=== PATIENT | female | born 1945 | race Caucasian/White ===

== ENCOUNTER 2016-09-16 13:15 | Emergency (ER) | payer MEDICARE, BC ==
--- NOTE | 2016-09-16 16:24 | EDM.PDOC ---
ED HISTORY OF PRESENT ILLNESS - General Chief Complaint: Respiratory Problem Stated Complaint: ACUTE SHORTNESS OF BREATH Time Seen by Provider: 09/16/16 14:48 Source: Reports: Patient History Limitations: Reports: No limitations - History of Present Illness INITIAL COMMENTS - FREE TEXT/NARRATIVE: This patient comes in complaining of shortness of breath and fluid retention. She said her problems started off a couple of weeks ago with a viral syndrome with a cough. She went to the doctor was put on antibiotics any cough medication and hope that she would be better by the time she had her hip replaced on September 13. The surgery did take place on the and the following day she noted a lot of itching and she started retaining fluid. She was put on some Lasix. She has gained 12 pounds since Monday or 3 days ago. She complains of shortness of breath and dyspnea on exertion. She took Lasix yesterday and today it doesn't seem to have helped much. She denies any history of heart disease. She has fibromyalgia and anxiety. She denies any heart disease kidney or liver disease. She complains of swelling in her legs especially the left thigh. There's no chest pain or chest pain with respirations. - Related Data Allergies/ADRs: Allergies Allergy/AdvReac Type Severity Reaction Status Date / Time No Known Allergies Allergy Verified 05/18/16 12:13 Home Meds: Home Meds ALPRAZolam [Alprazolam] 0.5 tab PO TID PRN 05/18/16 [History] DULoxetine HCl [Cymbalta] 60 mg PO DAILY 05/18/16 [History] Acetaminophen [Tylenol] 650 mg PO Q6HR 09/16/16 [History] Albuterol [Ventolin HFA] 2 puff INH ASDIRECTED 09/16/16 [History] Doxycycline [Doxycycline Hyclate] 100 mg PO BID 09/16/16 [History] Furosemide [Furosemide] 20 mg PO DAILY 09/16/16 [History] Naproxen [Take Home: Naproxen 500 MG, 4 Tab Pack] 250 mg PO BID 09/16/16 [ History] diphenhydrAMINE [Benadryl] 25 mg PO BEDTIME PRN 09/16/16 [History] oxyCODONE HCl [Oxycodone HCl] 1 - 2 tab PO Q4HR 09/16/16 [History] traMADol [Take Home: traMADol 50 MG, 4 Tab Pack] 1 - 2 cap PO Q6HR 09/16/16 [ History] 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 right and left knees. bilatral great toe and thumbs Social & Family History - Tobacco Use Smoking Status *Q: Former Smoker Used Tobacco, but Quit: Yes Month Tobacco Last Used: 30 years ago Tobacco Use Comment: quit 30 years ago - Caffeine Use Caffeine Use: Reports: Coffee - Recreational Drug Use Recreational Drug Use: No ED ROS GENERAL - Review of Systems Review Of Systems: See Below Constitutional: Reports: weight gain HEENT: Reports: No symptoms Respiratory: Reports: Shortness of Breath Cardiovascular: Reports: Dyspnea on exertion GI/Abdominal: Reports: No symptoms : Reports: no symptoms (The the) Musculoskeletal: Reports: other Skin: Reports: no symptoms (Leg swelling per HPI) Neurological: Reports: No Symptoms Psychiatric: Reports: No symptoms Hematologic/Lymphatic: Reports: no symptoms ED EXAM, GENERAL - Physical Exam Exam: See Below Exam Limited By: No limitations General Appearance: alert, WD/WN, no apparent distress, obese Eye Exam: bilateral eye: normal inspection Ears: normal external exam, normal TMs Nose: normal inspection Throat/Mouth: Normal inspection, Normal oropharynx Head: atraumatic Neck: normal inspection, other (Jugular veins not obviously distended) Respiratory/Chest: no respiratory distress, other (Initially some rales in the right base but these quickly cleared up.) Cardiovascular: normal peripheral pulses, regular rate, rhythm, no murmur GI/Abdominal: soft, non tender Back Exam: normal inspection Extremities: other (There is very slight swelling of the left thigh however there is no discoloration and absolutely no tenderness. She's wearing knee high compression stockings. No edema was seen in the lower extremities and there is no tenderness to the calves. No discoloration. There is some bandage on the left hip) Neurological: alert, oriented, CN II-XII intact, normal cognition, no motor/ sensory deficits Psychiatric: normal affect Skin Exam: Warm, Dry Course - Vital Signs Last Recorded V/S: Last Vital Signs Temp 36.3 C 09/16/16 14:47 Pulse 73 09/16/16 15:58 Resp 11 L 09/16/16 15:58 BP 110/46 L 09/16/16 15:58 Pulse Ox 93 L 09/16/16 15:58 - Orders/Labs/Meds Orders: Active Orders 24 hr Category Date Time Status EKG Documentation Completion [RC] ASDIRECTED Care 09/16/16 15:05 Active Chest 2V [CR] Urgent Exams 09/16/16 15:05 Taken EKG 12 Lead [EK] Urgent Ther 09/16/16 15:05 Ordered Labs: Laboratory Tests 09/16/16 09/16/16 09/16/16 Range/Units 14:12 15:16 15:16 WBC 7.8 (4.5-11.0) K/uL RBC 3.67 (3.30-5.50) M/uL Hgb 10.5 L (12.0-15.0) g/dL Hct 31.9 L (36.0-48.0) % MCV 87 (80-98) fL MCH 29 (27-31) pg MCHC 33 (32-36) % Plt Count 336 (150-400) K/uL Neut % (Auto) 72 H (36-66) % Lymph % (Auto) 14 L (24-44) % [place] % (Auto) 9 H (2-6) % Eos % (Auto) 4 (2-4) % Baso % (Auto) 1 (0-1) % Sodium 137 L (140-148) mmol/L Potassium 3.7 (3.6-5.2) mmol/L Chloride 100 (100-108) mmol/L Carbon Dioxide 30 (21-32) mmol/L Anion Gap 10.7 (5.0-14.0) mmol/L BUN 15 (7-18) mg/dL Creatinine 0.8 (0.6-1.0) mg/dL Est Cr Clr Drug Dosing 57.31 mL/min Estimated GFR (MDRD) > 60 (>60) Glucose 86 (74-106) mg/dL Calcium 8.7 (8.5-10.1) mg/dL Total Bilirubin 0.5 (0.2-1.0) mg/dL AST 42 H (15-37) U/L ALT 28 (12-78) U/L Alkaline Phosphatase 60 (46-116) U/L Troponin I (0.000-0.056) ng/mL [id number] Pept (5-125) pg/mL Total Protein 6.2 L (6.4-8.2) g/dL Albumin 2.8 L (3.4-5.0) g/dL Globulin 3.4 (2.3-3.5) g/dL Albumin/Globulin Ratio 0.8 L (1.2-2.2) Urine Color Yellow Urine Appearance Clear Urine pH 6.0 (4.5-8.0) Ur Specific [place] 1.015 (1.008-1.030) Urine Protein Negative (NEGATIVE) mg/dL Urine Glucose (UA) Normal (NEGATIVE) mg/dL Urine Ketones Negative (NEGATIVE) mg/dL Urine Occult Blood Negative (NEGATIVE) Urine Nitrite Negative (NEGATIVE) Urine Bilirubin Negative (NEGATIVE) Urine Urobilinogen Normal (NORMAL) mg/dL Ur Leukocyte Esterase Negative (NEGATIVE) Urine RBC 0-5 (0-5) Urine WBC Not seen (0-5) Ur Epithelial Cells Rare Amorphous Sediment Not seen Urine Bacteria Rare Urine Mucus Not seen 09/16/16 Range/Units 15:16 WBC (4.5-11.0) K/uL RBC (3.30-5.50) M/uL Hgb (12.0-15.0) g/dL Hct (36.0-48.0) % MCV (80-98) fL MCH (27-31) pg MCHC (32-36) % Plt Count (150-400) K/uL Neut % (Auto) (36-66) % Lymph % (Auto) (24-44) % [place] % (Auto) (2-6) % Eos % (Auto) (2-4) % Baso % (Auto) (0-1) % Sodium (140-148) mmol/L Potassium (3.6-5.2) mmol/L Chloride (100-108) mmol/L Carbon Dioxide (21-32) mmol/L Anion Gap (5.0-14.0) mmol/L BUN (7-18) mg/dL Creatinine (0.6-1.0) mg/dL Est Cr Clr Drug Dosing mL/min Estimated GFR (MDRD) (>60) Glucose (74-106) mg/dL Calcium (8.5-10.1) mg/dL Total Bilirubin (0.2-1.0) mg/dL AST (15-37) U/L ALT (12-78) U/L Alkaline Phosphatase (46-116) U/L Troponin I < 0.017 (0.000-0.056) ng/mL [id number] Pept 436 H (5-125) pg/mL Total Protein (6.4-8.2) g/dL Albumin (3.4-5.0) g/dL Globulin (2.3-3.5) g/dL Albumin/Globulin Ratio (1.2-2.2) Urine Color Urine Appearance Urine pH (4.5-8.0) Ur Specific [place] (1.008-1.030) Urine Protein (NEGATIVE) mg/dL Urine Glucose (UA) (NEGATIVE) mg/dL Urine Ketones (NEGATIVE) mg/dL Urine Occult Blood (NEGATIVE) Urine Nitrite (NEGATIVE) Urine Bilirubin (NEGATIVE) Urine Urobilinogen (NORMAL) mg/dL Ur Leukocyte Esterase (NEGATIVE) Urine RBC (0-5) Urine WBC (0-5) Ur Epithelial Cells Amorphous Sediment Urine Bacteria Urine Mucus - Radiology Interpretation Free Text/Narrative:: Chest x-ray shows normal heart size. There is . [place] prominence of pulmonary vascular structures. There e is no pulmonary edema. - Re-Assessments/Exams Free Text/Narrative Re-Assessment/Exam: 09/16/16 16:46 All labs were discussed with the patient. Basically there is no evidence of any cardiac dysfunction her kidney function is normal her liver function I believe is normal although her albumin is just a little bit low. This may have something to do with the fluid retention. I believe that a diuretic for a few days would be just fine. Free Text/Narrative Re-Assessment/Exam: 09/16/16 16:48 I recall the patient mentioned something about her provider wondering if maybe she had a pulmonary embolus. There is nothing about this lady's presentation that makes me think of a pulmonary embolus. The only risk factor would be her recent surgery however she's not having any symptoms at all of a pulmonary embolus so a workup for PE was not indicated. Departure - Departure Time of Disposition: 16:47 Disposition: Home, Self-Care 01 Condition: fair Clinical Impression: Fluid retention Referrals: [place] Myrick PA-C [Primary Care Provider] - Forms: ED Department Discharge Additional Instructions: Take furosemide 40 mg each morning for the next several days. There is enough for 10 days but I don't think you're going to need it more than 3 or 4 days. If you do not need the medication didn't help take it. It can actually make you dehydrated and will cause you to lose potassium. See your Dr. if you're not getting better within the next few days. - My Orders Last 24 Hours: My Active Orders 09/16/16 15:05 EKG Documentation Completion [RC] ASDIRECTED Chest 2V [CR] Urgent EKG 12 Lead [EK] Urgent - Assessment/Plan Last 24 Hours: My Active Orders 09/16/16 15:05 EKG Documentation Completion [RC] ASDIRECTED Chest 2V [CR] Urgent EKG 12 Lead [EK] Urgent
[2016-09-16 16:56] VITALS: BP 122/56
--- NOTE | 2016-09-19 09:22 | CR ---
Chest 2V HISTORY: No Clinical Info FINDINGS: Heart size within normal limits. Pulmonary vasculature within normal limits. No evidence f or focal consolidation or cardiopulmonary process. IMPRESSION: No radiographic evidence for acute cardiopulmonary process.
== END 2016-09-16 17:33 | disposition home or self-care (01) ==
LOC: JP.ED 13:15
DX: E87.70 Fluid overload, unspecified (principal); F41.9 Anxiety disorder, unspecified; Z79.899 Other long term (current) drug therapy; Z90.710 Acquired absence of both cervix and uterus; Z90.721 Acquired absence of ovaries, unilateral; Z96.651 Presence of right artificial knee joint; Z96.652 Presence of left artificial knee joint; Z96.641 Presence of right artificial hip joint; Z96.642 Presence of left artificial hip joint; Z98.890 Other specified postprocedural states; Z87.891 Personal history of nicotine dependence
CPT/HCPCS: 36415; 71020; 71020-26; 80053; 81001; 83880; 84484; 85025; 93005; 93010; 99283; 99285-25